=== PATIENT | female | born 1935 | race Caucasian/White ===

== ENCOUNTER 2016-08-29 13:07 | Emergency (ER) | payer OTHER ==
[~2016-08-29] VITALS: Ht 162.6 cm; Wt 75.0 kg
[~2016-08-29 13:07] MED LIST: ALBUTEROL SULF8.5 GM IH; ALEVE220 MG PO; AMLODIPINE BESY10 MG PO; APRESOLINE100 MG PO; ASCORBIC ACID500 M3 PO; B-100 COMPLEX1 EACH PO; BENTYL10 MG PO; BYSTOLIC5 MG PO; CALCIUM + D 601 EACH PO; CALCIUM 600 +1 EAC1 PO; CALCIUM PO; CARVEDILOL PO; CARVEDILOL25 MG PO; CLARITIN,ALAVAR10 MG PO; COREG25 M1 PO; COUMADIN5 MG PO; FENOFIBRATE160 M1 PO; FIBERCON625 MG PO; FISH OIL 1,0001 EAC7 PO; FISH OIL CONC1 EACH PO; FISH OIL500 MG PO; FLEXERIL10 MG PO; FLONASE16 G1 BOTH NARES; FLONASE16 G1 NS; FLOVENT 11120 INHALA IH; FLOVENT DISKUS1 DIS2 IH; FOSINOPRIL SODI40 MG PO; FUROSEMIDE40 MG PO; GLUCOSAMINE SU750 M1 PO; GLUCOSAMINE1000 MG PO; HYDRALAZINE HC100 MG PO; HYDROCHLOROTHIA25 MG PO; LASIX40 MG PO; MELATONIN10 M2 PO; MELATONIN5 M1 PO; MONOPRIL20 MG PO; MULTIVITAMIN1 EAC2 PO; MYSOLINE50 M1 PO; MYSOLINE50 MG PO; NAPROXEN250 MG PO; NAPROXEN375 M1 PO; NORVASC10 MG PO; OMEPRAZOLE40 M1 PO; ONE-A-DAY WOME1 EAC1 PO; PHARMACIST FAV1 EACH PO; PRAVACHOL40 MG PO; PREDNISONE20 MG PO; PRILOSEC20 MG PO; PRIMIDONE50 MG PO; PROVENTIL,2.5 MG/3 M IH; REQUIP1 MG PO; SINGULAIR10 MG PO; SYMBICORT60 INHALA1 IH; TYLENOL ARTHRI650 MG PO; TYLENOL EXTRA500 MG PO; TYLENOL REGULA325 MG PO; ULTRACET1 TABLET PO; VENTOLIN HFA18 GM IH; VITAMIN D31000 UNIT PO; VOLTAREN 1% GE100 GM TP; VOLTAREN-XR100 MG PO
[2016-08-29 13:37] LABS: HEMATOCRIT 42.6 % (36.0-46.0); MCH 32.4 PG (29.0-34.0); MCHC 34.3 G/DL (30.0-36.0); MCV 94.5 FL (83-99); MEAN PLAT.VOLUME 9.6 uM^3 (9.5-12.4); PLATELET COUNT 213 K/uL (156-360); RBC DIS.WIDTH-CV 11.9 % (11.8-14.6); RBC DIS.WIDTH-SD 41.5 % (39-53); RED BLOOD COUNT 4.51 M/uL (3.80-5.20); WHITE BLOOD COUNT 8.4 K/uL (4.1-10.2)
[2016-08-29 13:49] LABS: CHLORIDE 104 mEq/L (99-109); POTASSIUM 3.6 mEq/L (3.7-5.4); SODIUM 138 mEq/L (136-147)
[2016-08-29 13:51] LABS: GLUCOSE 123 mg/dL (70-99)
[2016-08-29 13:53] LABS: ANION GAP 9 MEQ/L (2-14)
[2016-08-29 13:55] LABS: GFR ESTIMATE (CALCULATED) > 59 mL/min/
[2016-08-29 13:56] LABS: UREA NITROGEN (BUN) 27 mg/dL (9-23)
[2016-08-29] MEDS ORDERED: ANTIVERT25 MG PO (17:28)
[2016-08-29 18:15] VITALS: BP 168/81
== END 2016-08-29 18:35 | disposition home or self-care (01) ==
LOC: EME 13:07
DX: R42 Dizziness and giddiness (principal); K21.9 Gastro-esophageal reflux disease without esophagitis; J45.909 Unspecified asthma, uncomplicated; E78.5 Hyperlipidemia, unspecified; I10 Essential (primary) hypertension; E11.9 Type 2 diabetes mellitus without complications; Z88.6 Allergy status to analgesic agent
CPT/HCPCS: 70450; 71020; 80048; 85027; 93005; 99281; 99284

== ENCOUNTER 2016-09-25 17:03 | Emergency (ER) | payer OTHER ==
[~2016-09-25] VITALS: Ht 162.6 cm; Wt 76.7 kg
[~2016-09-25 17:03] MED LIST changes: +ANTIVERT25 MG PO
[2016-09-25 18:36] LABS: HEMATOCRIT 41.1 % (36.0-46.0); MCH 32.3 PG (29.0-34.0); MCHC 34.5 G/DL (30.0-36.0); MCV 93.6 FL (83-99); MEAN PLAT.VOLUME 9.5 uM^3 (9.5-12.4); PLATELET COUNT 202 K/uL (156-360); RBC DIS.WIDTH-CV 12.1 % (11.8-14.6); RBC DIS.WIDTH-SD 41.9 % (39-53); RED BLOOD COUNT 4.39 M/uL (3.80-5.20); WHITE BLOOD COUNT 13.5 K/uL (4.1-10.2)
[2016-09-25 18:37] LABS: ADD MIUA? NO; BILIRUBIN NEGATIVE; BLOOD NEGATIVE; COLOR STRAW ((YELLOW)); GLUCOSE (STRIP) NEGATIVE; KETONES NEGATIVE; LEUKOCYTES NEGATIVE; NITRITE NEGATIVE; PROTEIN (STRIP) NEGATIVE; SPECIFIC GRAVITY 1.008 (1.000-1.030); UCUL ADDED? NO; UROBILINOGEN 0.2 MG/DL (0.2-1.0)
[2016-09-25 18:43] LABS: CHLORIDE 104 mEq/L (99-109); SODIUM 139 mEq/L (136-147)
[2016-09-25 18:46] LABS: GLUCOSE 142 mg/dL (70-99)
[2016-09-25 18:47] LABS: ANION GAP 10 MEQ/L (2-14)
[2016-09-25 18:48] LABS: TOTAL BILIRUBIN 0.5 mg/dL (0.0-1.0)
[2016-09-25 18:49] LABS: ALKALINE PHOSPHATASE 54 IU/L (3-129); GFR ESTIMATE (CALCULATED) 57 mL/min/
[2016-09-25 18:50] LABS: UREA NITROGEN (BUN) 21 mg/dL (9-23)
[2016-09-25] MEDS ORDERED: PERCOCET 5/31 TABLET PO (20:16)
[2016-09-25] MEDS ORDERED: CIPRO500 MG PO (20:16)
[2016-09-25] MEDS ORDERED: FLAGYL500 MG PO (20:16)
[2016-09-25 20:47] VITALS: BP 2164/80
== END 2016-09-25 20:48 | disposition home or self-care (01) ==
LOC: EME 17:03
DX: K57.32 Diverticulitis of large intestine without perforation or abscess without bleeding (principal); I10 Essential (primary) hypertension; E11.9 Type 2 diabetes mellitus without complications; E78.5 Hyperlipidemia, unspecified; J45.909 Unspecified asthma, uncomplicated; K21.9 Gastro-esophageal reflux disease without esophagitis; F32.9 Major depressive disorder, single episode, unspecified
CPT/HCPCS: 74177; 80053; 81003; 85027; 99281; 99284; J2270; J7030